=== PATIENT | female | born 1980 | race Caucasian/White ===

== ENCOUNTER 2018-11-25 14:06 | Emergency (ER) | payer SELFPAY ==
--- NOTE | 2018-11-25 14:30 | Emergency Department Record ---
History of Present Illness - General Chief Complaint: Shortness of breath Stated Complaint: SILVANO Time Seen by Provider: 11/25/18 14:24 Source: Patient Mode of Arrival: Ambulatory Limitations: No limitations - History of Present Illness Initial Comments: Pt with 3 days of sinus congestion and now cough, non productive. Smoker 1 ppd. No fever. No DM. MD Complaint: Shortness of breath Onset/Timin -: Week(s) Known History Of: COPD Associated Symptoms: Cough, Sputum production, Other - Related Data Previous Rx's Medication Instructions Recorded Azithromycin [Zithromax] 250 mg PO DAILY 5 Days #6 tablet 11/25/18 Allergies Allergy/AdvReac Type Severity Reaction Status Date / Time amoxicillin trihydrate Allergy Intermediate RASH Verified 11/25/18 14:22 [From Augmentin] potassium clavulanate Allergy Intermediate RASH Verified 11/25/18 14:22 [From Augmentin] Sulfa (Sulfonamide Allergy Unknown URINARY Verified 11/25/18 14:22 Antibiotics) TRACT INFECTION berries Allergy Intermediate DIARRHEA Uncoded 11/25/18 14:22 Travel Screening - Travel/Exposure Within Last 30 Days Have you traveled within the last 30 days?: No - Travel/Exposure Within Last Year Have you traveled outside the [place] in the last year?: No - Additonal Travel Details Have you been exposed to anyone with a communicable illness?: No - Travel Symptoms Symptom Screening: None Review of Systems Constitutional: Denies: Chills, Fever, Weakness Eyes: Denies: Eye discharge, Photophobia ENT: Reports: As per HPI, Congestion. Denies: Ear pain, Hearing loss, Throat pain Respiratory: Reports: Cough. Denies: Hemoptysis, Wheezes Cardiovascular: Reports: Arrhythmia, Chest pain, Syncope Endocrine: Reports: Fatigue Gastrointestinal: Reports: Abdominal pain, Nausea, Vomiting Genitourinary: Denies: Abnormal menses Musculoskeletal: Denies: Arthralgia Skin: Denies: Bruising, Rash Neurological: Denies: Headache Psychiatric: Denies: Anxiety Hematological/Lymphatic: Denies: Anemia Past Medical History - SOCIAL HISTORY Smoking Status: Current every day smoker Alcohol Use: Occasional Drug Use: None - RESPIRATORY Hx Respiratory Disorders: Yes Hx COPD: Yes (has been told she could have.) - CARDIOVASCULAR Hx Cardio Disorders: No - NEURO Hx Neuro Disorders: No - GI Hx GI Disorders: No - Hx Genitourinary Disorders: No - ENDOCRINE Hx Endocrine Disorders: No - MUSCULOSKELETAL Hx Musculoskeletal Disorders: No - PSYCH Hx Psych Problems: Yes Hx Anxiety: Yes - HEMATOLOGY/ONCOLOGY Hx Hematology/Oncology Disorders: No Family Medical History Any Significant Family History?: No Hx Cancer: Mother Physical Exam - General General Appearance: Alert, Oriented x3, Cooperative, No acute distress - Head Head exam: Normal inspection - Eye Eye exam: Normal appearance, PERRL - ENT ENT exam: Normal exam, Mucous membranes moist, Normal external ear exam, Normal orophraynx, TM's normal bilaterally - Neck Neck exam: Normal inspection, Full ROM. negative: Tenderness - Respiratory Respiratory exam: Normal lung sounds bilaterally. negative: Respiratory distress, Wheezes - Cardiovascular Cardiovascular Exam: Regular rate, Normal rhythm, Normal heart sounds - Extremities Extremities exam: Normal inspection - Neurological Neurological exam: Alert, Normal gait, Oriented X3 - Psychiatric Psychiatric exam: Normal affect - Skin Skin exam: Normal color. negative: Rash Course Vital Signs 11/25/18 14:10 Temperature 98.5 F Pulse Rate 79 Respiratory 20 Rate Blood Pressure 139/79 Pulse Ox 100 - Reevaluation(s) Reevaluation #1: 11/25/18 14:40 encouraged to stop smoking with risk of cancer, COPD, and early . Pt aware. Disposition Disposition: Discharge Clinical Impression: Sinusitis, Bronchitis, Tobacco abuse Disposition: Home, Self-Care Condition: (2) Stable Instructions: How to Stop Smoking (ED), Sinusitis (ED), Acute Bronchitis (ED) Additional Instructions: Quit tobacco. Saline nasal rinse Family [facility] as needed. Prescriptions: Azithromycin [Zithromax] 250 mg PO DAILY 5 Days #6 tablet Forms: Patient Portal Access Time of Disposition: 14:26 Quality - Quality Measures Quality Measures: N/A, Adult Bronchitis (18-64yr) - Adult Bronchitis Quality Measure: Measure #116: Avoidance of ABX w/Adult Bronchitis Is patient being admitted: Yes Avoidance of ABX w/Bronchitis: Medical Reason for prescribing ABX [G9712] Medical Reason For Rx: Bacterial infection - Adult Sinusitis: Abx Overuse Presumed Bacterial: Yes Adult Sinusitis: Antibiotic Within 10 Days of Symptoms: Medical Reason for Rx Within 10 Days [G9505] Reason for Prescription: Presumed Bacterial - Adult Sinusitis: Bacterial w/Abx Adult Sinusitis: Appropriate Antibiotic: Exclusion, Not Bacterial - Blood Pressure Screening Does Patient Have Any of the Following: No Blood Pressure Classification: Pre-Hypertensive BP Reading Systolic Measurement: 139 Diastolic Measurement: 79 Screening for High Blood Pressure: < Pre-Hypertensive BP, F/U Documented > [ G8950] Pre-Hypertensive Follow-up Interventions: Follow-up with rescreen every year.
== END 2018-11-25 14:46 | disposition home or self-care (01) ==
LOC: ER 14:06
DX: J20.9 Acute bronchitis, unspecified (principal); J01.90 Acute sinusitis, unspecified; F17.210 Nicotine dependence, cigarettes, uncomplicated
CPT/HCPCS: 99282